=== PATIENT | female | born 1970 | race Caucasian/White ===

== ENCOUNTER 2021-04-30 12:48 | Emergency (ER) | payer MEDICARE, MEDICAID, SELFPAY ==
[2021-04-30 12:49] VITALS: BP 120/84; PULSE 85; RESP 16; TEMP 36.6; O2SAT 96; BMI 32.8
--- NOTE | 2021-04-30 15:09 | EX.ED.DYSGE1 ---
HPI History of Present Illness Chief Complaint: Headache Detail of Chief Complaint: Headache, GI symptoms, urinary symptoms and myalgias Informant: patient Onset/Context/Timing Onset: Yesterday Context: Sudden Onset Timing: Continuous Quality: Myalgias and throbbing headache Location: Generalized and right-sided Current Severity: Mild Maximum Severity: Severe Worsened by: Photophobia and use of extremities Relieved by: Nothing Associated Symptoms Associated Symptoms: Per HPI Narrative Narrative: Patient is a 50-year-old woman with history of depression who presents with unilateral throbbing headache that started yesterday with no visual, ocular or auditory symptoms other than photophobia. She denies fever or chills. She denies neck pain or stiffness. She does complain of throat pain. She points to the larynx region. She does endorse rhinorrhea and congestion. She denies postnasal drainage. She does have mild cough. Cough is nonproductive. She does complain abdominal pain with nausea and vomiting x2 and diarrhea x4. She denies hematemesis, melena medic easier. She is had no ill contacts to her knowledge. She denies rash. She does report myalgias. She denies problems with coordination or balance. She denies problems with speech or swallowing. She denies paresthesia, anesthesia or motor weakness. Prior similar symptoms: No Recent Illness/Hospitalization: No PFSH PFSH Medical History no medical history Allergy/AdvReac Type Severity Reaction Status Date / Time diphenhydramine Allergy Anaphylaxis Verified 04/30/21 12:51 [From Benadryl] tramadol [From Ultram] Allergy Hives Verified 04/30/21 12:51 Social History (Updated 04/30/21 @ 15:[address] Shady Eisenberg MD) household members: significant other Smoking Status: Never smoker substance use type: does not use ROS ROS ED Constitutional Constitutional ED: Reports chills, fever(s) and subjective; Denies sweats or weight loss Eyes Eyes: Reports other Details: Photophobia ; Denies blurry vision, change in vision or diplopia ENT ENT ED: Reports rhinorrhea and sore throat; Denies ear pain Cardiovascular Cardiovascular: Denies chest pain, orthopnea, palpitations, paroxysmal nocturnal dyspnea or racing heartbeat Respiratory/Chest Respiratory/Chest: Reports cough; Denies dyspnea, dyspnea on exertion, orthopnea, paroxysmal nocturnal dyspnea or sputum Gastrointestinal Gastrointestinal: Reports abdominal pain, diarrhea, nausea and vomiting; Denies constipation Genitourinary Genitourinary ED: Reports dysuria, hematuria, urinary frequency and other Details: Patient has noted odor to her urine today. Musculoskeletal Musculoskeletal: Reports myalgias; Denies arthralgias, back pain or neck pain Integumentary Reports rash Neurologic Neurologic: Reports headache(s); Denies paresthesias or weakness Psychiatric Psychiatric: Reports depression; Denies anxiety Endocrine Endocrinology: Reports polydipsia, polyphagia and polyuria EXAM Physical Exam Const Vital Signs: 04/30/21 12:49 Temperature 98 F Temperature Source Temporal Pulse Rate 85 Respiratory Rate 16 Blood Pressure 120/84 H Blood Pressure Mean 96 Pulse Ox 96 Oxygen Delivery Method Room Air Positive well nourished and well developed General Appearance ED: well developed and other Patient has the lights out in the room. She is photophobic. She appears ill but not toxic. ; Negative for cyanotic, diaphoretic, NAD or pallor HEENT Reports TM's clear and dry mucous membranes HEENT Narrative: Ears normal. Nares patent. Posterior pharynx is unremarkable without erythema or exudate. Uvula midline. Trach is midline. There is no inspiratory stridor. There is no palpable cervical lymph nodes. Negative for trauma or tenderness Tympanic Membrane ED: Yes TM's clear Mouth ED: Yes dry mucous membranes Mouth: dry mucous membranes Eyes PERRL and EOMs intact bilaterally Eyes Narrative: There is no APD. There is no papilledema. Normal cup-to-disc ratio. General Eye ED: Negative for pale conjunctiva or scleral icterus Neck no lymphadenopathy, supple and no JVD General: Negative for tenderness Resp normal respiratory effort and clear to auscultation bilaterally Cardio regular rate, regular rhythm, S1 normal heart sound, S2 normal heart sound and no murmurs GI normal to inspection, nondistended, normoactive bowel sounds, non-tender and non-distended Palpation: soft Back/Spine no CVA tenderness Cervical Spine: Negative for cervical spine tenderness Thoracic Spine / Upper Back: Negative for thoracic spinal tenderness Extremity normal to inspection General Extremety ED: Negative for edema or tenderness General Extremity: Negative for edema Neuro oriented x3, CN's II-XII intact bilaterally and no sensory deficits noted Neuro Narrative: Bicep, brachialis, tricep, patella ankle reflex are 2+ and symmetric. There is no clonus or Babinski sign. Sensorium / Orientation: alert Motor Exam: strength 5/5 throughout Psych Psych Narrative: Flat affect Skin no rashes or lesions noted and no wounds General Skin Exam: Negative for jaundice or pallor MDM MDM MDM Narrative Medical decision making narrative: Suspect patient has viral illness. Will obtain UA to rule out urinary tract infection as she has symptoms. Clinically she is dehydrated. 500 cc bolus was given since there is concern possible for Covid. Rapid Covid test was obtained. Since patient has no true photophobia since I was able to do funduscopic exam and has no nuchal rigidity or meningeal findings doubt meningitis. Lab Data Attestation: I reviewed the patient's lab results. Lab results narrative: CBC is remarkable for lymphocytosis consistent with viral infection. Basic metabolic panel is unremarkable. Urine is unremarkable. Patient was reassessed at 1725. Her headache is improved markedly. She was informed of her results. Plan is to discharge to home. Labs: Laboratory Results - last 24 hr 04/30/21 04/30/21 04/30/21 15:20 15:20 15:32 WBC 5.8 RBC 4.00 L Hgb 12.3 Hct 36.4 L MCV 91.0 MCH 30.8 MCHC 33.8 RDW Std Deviation 42.4 RDW Coeff of Roxy 12.9 Plt Count 240 MPV 12.3 H Immature Gran % (Auto) 0.200 Neut % (Auto) 47.1 Lymph % (Auto) 41.5 H [place] % (Auto) 7.3 Eos % (Auto) 3.0 Baso % (Auto) 0.9 Absolute Neuts (auto) 2.7 Absolute Lymphs (auto) 2.39 Nucleated RBC % 0 Sodium 136 Potassium 3.4 L Chloride 102 Carbon Dioxide 27.0 Anion Gap 7 BUN 9 Creatinine 0.76 Estim Creat Clear Calc 72.44 Est GFR (MDRD) Af Amer 102 Est GFR (MDRD) Non-Af 85 BUN/Creatinine Ratio 11.8 Glucose 84 Calcium 9.1 Urine Color Yellow Urine Clarity Clear Urine pH 6.0 Ur Specific [place] 1.005 Urine Protein Negative Urine Glucose (UA) Normal Urine Ketones Negative Urine Occult Blood Negative Urine Nitrite Negative Urine Bilirubin Negative Urine Urobilinogen Normal Ur Leukocyte Esterase Negative Urine RBC 0 SEEN Urine WBC 0 SEEN Ur Squamous Epith Cells 0 SEEN Urine Bacteria 0 SEEN Urine Mucus 0 SEEN Discharge Plan Triage Chief Complaint: Headache ED Provider: Shady Eisenberg Dx/Rx/DC Orders Clinical Impression: Vascular headache, Systemic viral illness, Nausea vomiting and diarrhea, Dehydration, mild Instructions: ED Viral Syndrome (Adult) Primary Care Provider: Meche Wells NP Referrals: Meche Wells NP, [employer] [Primary Care Provider] - 1 Week if not improving Disposition Disposition: Home, Self Care
[2021-04-30] MEDS: Metoclopramide 10 MG/2 ML Vial IV (15:32)
[2021-04-30] MEDS: Ketorolac 15 MG/ML Vial IV (15:32)
[2021-04-30 15:41] LABS: Bacteria 0 SEEN /hpf (None Seen); Mucous, Urine 0 SEEN /hpf (<or=2+); Red Blood Cells-Urine 0 SEEN /hpf (0-5); Squamous Epithelial Cells - UA 0 SEEN /hpf (5-10); White Blood Cells 0 SEEN /hpf (0-5)
[2021-04-30 15:41] LABS: Absolute Lymphocyte Count 2.39 X10^3/uL (0.83-4.51); Absolute Neutrophil Count 2.7 X10^3/uL (2.0-7.7); Basophil# 0.05 X10^3/uL; Basophil% 0.9 % (0-1); Eosinophil# 0.17 X10^3/uL; Hematocrit 36.4 % (37-47); Hemoglobin 12.3 g/dL (12.0-15.0); Lymphocyte # 2.39 X10^3/ul (0.83-4.51); Lymphocyte % 41.5 % (19-41); Mean Corp Hgb Conc 33.8 g/dL (32-36); Mean Corpuscular Hgb 30.8 pg (27.0-32.0); Mean Platelet Vol. 12.3 fl (6.2-12.0); Monocyte# 0.42 X10^3/uL; Monocyte% 7.3 % (0-10); NRBC Flagged by Analyzer 0 % (0-5); Neutrophil # 2.72 X10^3/uL (2.7-7.7); Neutrophil % 47.1 % (47-70); Platelet Count 240 K/mm3 (150-450); RBC Distribution Width CV 12.9 % (11.6-14.6); RBC Distribution Width SD 42.4 fl (35.1-43.9); White Blood Count 5.8 K/mm3 (4.4-11.0)
[2021-04-30 15:54] LABS: Color, Urine Yellow (Yellow); Glucose, Dipstick Normal (Normal); Ketone-Dipstick Negative (Negative); Leukocyte Esterase-Dipstick Negative /ul (Negative); Nitrite-Dipstick Negative (Negative); Occult Blood-Urine Negative /ul (Negative); Protein-Dipstick Negative (Negative); Specific Gravity, Urine 1.005 (1.002-1.030); Urine Bilirubin Dipstick Negative (Negative); Urine Clarity Clear (Clear); Urine Urobilinogen Normal (Normal)
[2021-04-30 16:00] LABS: Anion Gap 7 (5-15); BUN 9 mg/dL (7-18); BUN/Creat Ratio 11.8 RATIO (10-20); Calcium,Total 9.1 mg/dL (8.5-10.1); Chloride 102 mmol/L (98-107); Creatinine, Serum 0.76 mg/dL (0.55-1.02); EST Glomerular Filtration Rate 85 mL/min (>60); Est Glom Filt Rate - Afr Amer 102 mL/min (>60); Estimated Creatinine Clearance 72.44 ml/min; Glucose 84 mg/dL (74-106); Potassium 3.4 mmol/L (3.5-5.1); Sodium Level 136 mmol/L (136-145)
[2021-04-30 18:05] VITALS: BP 127/62; PULSE 64; RESP 15; O2SAT 98
== END 2021-04-30 18:06 | disposition home or self-care (01) ==
PROVIDERS: Emergency Provider Emergency Medicine; PCP Nurse Practitioner Family; Visit Provider Emergency Medicine
DX: G44.1 Vascular headache, not elsewhere classified (principal); B34.9 Viral infection, unspecified; R19.7 Diarrhea, unspecified; Z20.822 Contact with and (suspected) exposure to COVID-19; E86.0 Dehydration
CPT/HCPCS: 80048; 81001; 85025; 87426; 96361; 96374; 96375; 99283; J7040; A4216

== ENCOUNTER 2021-11-26 18:56 | Observation (INO) | payer MEDICARE, MEDICAID, SELFPAY ==
[2021-11-26 18:57] VITALS: BP 113/99; PULSE 81; RESP 16; TEMP 36.6; O2SAT 97; BMI 31.8
--- NOTE | 2021-11-26 21:43 | CT_ITS ---
EXAM: CT ABDOMEN AND PELVIS WITHOUT INTRAVENOUS CONTRAST CLINICAL INDICATION: pain TECHNIQUE: Helically acquired images were obtained of the abdomen and pelvis without intravenous contrast. This CT exam was performed using one or more of the following dose reduction techniques: automated exposure control, adjustment of the mA and/or kV according to patient size, and/or use of iterative reconstruction technique. This report was created using [employer] report generation technology. COMPARISON: None. FINDINGS: LOWER THORAX: Unremarkable. Lung bases are clear. No cardiomegaly. No significant pericardial effusion. ABDOMEN: LIVER: Unremarkable. Homogeneous. GALLBLADDER AND BILE DUCTS: Gallbladder is surgically absent. No intra- or extrahepatic biliary ductal dilation. PANCREAS: Unremarkable. No focal cystic mass. SPLEEN: Unremarkable. Normal size without focal cystic or solid mass. ADRENALS: Unremarkable. No nodules. KIDNEYS AND URETERS: Unremarkable. Normal renal size and position. No hydronephrosis. STOMACH AND BOWEL: Unremarkable. No stomach or bowel distention. No focal inflammatory change. PELVIS: APPENDIX: Normal visualized appendix. BLADDER: Unremarkable. REPRODUCTIVE: Unremarkable as visualized. No mass. ABDOMEN and PELVIS: INTRAPERITONEAL SPACE: Unremarkable. No ascites or other fluid collection. No free air. BONES/JOINTS: Mild lumbar levoscoliosis. No suspicious lytic or blastic abnormality. SOFT TISSUES: Unremarkable. No discrete abdominal or pelvic wall hernia. VASCULATURE: Unremarkable. Abdominal aorta is normal in caliber. LYMPH NODES: Unremarkable. No enlarged lymph nodes. CT/Abdomen/Pelvis without Cont IMPRESSION: No acute findings in the abdomen or pelvis. Electronically Signed: Rafia Santana MD at 22:49 EDT Reading Location ID and State: [id number] / Tel , Service support ,
--- NOTE | 2021-11-26 21:53 | EDS_ITS ---
HPI History of Present Illness Chief Complaint: Back Informant: patient Onset/Context/Timing Onset: Today Context: Gradual Onset Narrative Narrative: Patient presents secondary to low back pain. She states normally she has neck problems but really not issues with her low back. She developed low back pain and actually points to the right flank area. She states it wraps around into the groin line but does not go down her leg. She has no urinary symptoms. No fever or chills. She has been taking Tylenol and ibuprofen. [facility] Medical History (Updated 11/26/21 @ 23:[address] Iram Yates MD) Cholecystectomy planned Allergy/AdvReac Type Severity Reaction Status Date / Time diphenhydramine Allergy Anaphylaxis Verified 11/26/21 18:57 [From Benadryl] tramadol [From Ultram] Allergy Hives Verified 11/26/21 18:57 Social History household members: significant other Smoking Status: Never smoker substance use type: does not use ROS ROS ED Constitutional Constitutional ED: Denies chills or fever(s) Eyes Eyes: Denies change in vision or discharge from eye(s) ENT ENT ED: Denies discharge from eye(s), rhinorrhea or sore throat Cardiovascular Cardiovascular: Denies chest pain or palpitations Respiratory/Chest Respiratory/Chest: Denies cough or dyspnea Gastrointestinal Gastrointestinal: Denies abdominal pain, diarrhea, nausea or vomiting Genitourinary Genitourinary ED: Denies difficulty urinating or dysuria Musculoskeletal Musculoskeletal: Reports back pain; Denies extremity pain Integumentary Denies Abrasions or rash Neurologic Neurologic: Denies headache(s) or weakness Allergic/Immunologic Allergic/Immunologic ED: Denies lip swelling or urticaria EXAM Physical Exam Const Vital Signs: 11/26/21 18:57 Temperature 97.8 F Temperature Source Temporal Pulse Rate 81 Respiratory Rate 16 Blood Pressure 113/99 H Blood Pressure Mean 103 Pulse Ox 97 Oxygen Delivery Method Room Air Positive well nourished and well developed General Appearance ED: well developed HEENT Reports normocephalic and head/scalp atraumatic Eyes PERRL and EOMs intact bilaterally Neck supple Chest Wall inspection of chest normal and palpation of chest normal Resp normal respiratory effort and clear to auscultation bilaterally Cardio regular rate and regular rhythm GI non-tender Auscultation: hypoactive bowel sounds Palpation: soft Back/Spine Back/Spine Narrative: Right lumbar paraspinal tenderness. General Back: CVA tenderness right Extremity normal to inspection Neuro oriented x3 and no sensory deficits noted Sensorium / Orientation: alert Motor Exam: strength 5/5 throughout Psych Mood & Affect: anxious Skin no rashes or lesions noted MDM MDM MDM Narrative Medical decision making narrative: With patient having flank pain, lab work and urinalysis are ordered. CT flank ordered. Patient given morphine, Toradol, Zofran, IV fluids. Lab Data Attestation: I reviewed the patient's lab results. Labs: Laboratory Results - last 24 hr 11/26/21 11/26/21 22:01 22:01 WBC 6.9 RBC 4.11 L Hgb 12.3 Hct 38.0 MCV 92.5 MCH 29.9 MCHC 32.4 RDW Std Deviation 43.7 RDW Coeff of Roxy 13.0 Plt Count 218 MPV 11.8 Immature Gran % (Auto) 0.300 Neut % (Auto) 40.6 L Lymph % (Auto) 48.4 H [place] % (Auto) 7.1 Eos % (Auto) 2.6 Baso % (Auto) 1.0 Absolute Neuts (auto) 2.8 Absolute Lymphs (auto) 3.32 Nucleated RBC % 0 Sodium 134 L Potassium 3.6 Chloride 100 Carbon Dioxide 27.0 Anion Gap 7 BUN 13 Creatinine 1.05 H Estim Creat Clear Calc 51.85 Est GFR (MDRD) Af Amer 71 Est GFR (MDRD) Non-Af 59 L BUN/Creatinine Ratio 12.4 Glucose 90 Calcium 9.1 Total Bilirubin 0.40 Direct Bilirubin 0.12 AST 13 L ALT 19 Alkaline Phosphatase 62 Total Protein 7.2 Albumin 3.9 Globulin 3.3 Radiography Diagnostic Testing: Clinical Impression(s) from Imaging Studies Abdomen/Pelvis CT 11/26/21 21:43 IMPRESSION: No acute findings in the abdomen or pelvis. Electronically Signed: Rafia Santana MD at 22:49 EDT Reading Location ID and State: [id number] / Tel , Service support , Treatment and Re-Evaluation Narrative: CBC and chemistry studies unremarkable. CT flank is normal. On repeat evaluation patient still having significant pain. She is given an additional 0.5 mg of Dilaudid as well as a Lidoderm patch. After another half hour patient still has significant pain and cannot get comfortable. I will give her dose of Flexeril and speak with hospitalist regarding admission for intractable back pain. Discharge Plan Triage Chief Complaint: Back ED Provider: Iram Yates Dx/Rx/DC Orders Clinical Impression: Intractable back pain Primary Care Provider: Meche Wells NP Referrals: Meche Wells NP, [employer] [Primary Care Provider] - Disposition Disposition: Acute Care Hospital [facility]
[2021-11-26] MEDS: Ketorolac 30 MG/ML Syringe IV (21:57)
[2021-11-26] MEDS: Ondansetron 4 MG/2 ML Vial IV (21:57)
[2021-11-26] MEDS: 0.9% Normal Saline 1,000 ML 150 ML IV (21:57)
[2021-11-26] MEDS: Morphine 4 MG/ML Syringe IV (21:57)
[2021-11-26 22:08] LABS: Absolute Lymphocyte Count 3.32 X10^3/uL (0.83-4.51); Absolute Neutrophil Count 2.8 X10^3/uL (2.0-7.7); Basophil# 0.07 X10^3/uL; Eosinophil# 0.18 X10^3/uL; Eosinophils% 2.6 % (0-5); Hemoglobin 12.3 g/dL (12.0-15.0); Lymphocyte # 3.32 X10^3/ul (0.83-4.51); Lymphocyte % 48.4 % (19-41); Mean Corp Hgb Conc 32.4 g/dL (32-36); Mean Corpuscular Hgb 29.9 pg (27.0-32.0); Mean Corpuscular Volume 92.5 fL (81-99); Mean Platelet Vol. 11.8 fl (6.2-12.0); Monocyte# 0.49 X10^3/uL; Monocyte% 7.1 % (0-10); NRBC Flagged by Analyzer 0 % (0-5); Neutrophil # 2.78 X10^3/uL (2.7-7.7); Neutrophil % 40.6 % (47-70); Platelet Count 218 K/mm3 (150-450); RBC Distribution Width SD 43.7 fl (35.1-43.9); Red Blood Count 4.11 M/mm3 (4.2-5.4); White Blood Count 6.9 K/mm3 (4.4-11.0)
[2021-11-26 22:25] LABS: AST(SGOT) 13 U/L (15-37); Alanine Aminotransfer ALT/SGPT 19 U/L (13-56); Albumin, Serum 3.9 g/dL (3.2-5.0); Alkaline Phosphatase 62 U/L (45-117); Anion Gap 7 (5-15); BUN 13 mg/dL (7-18); BUN/Creat Ratio 12.4 RATIO (10-20); Bilirubin, Direct 0.12 mg/dL (0.00-0.30); Calcium,Total 9.1 mg/dL (8.5-10.1); Chloride 100 mmol/L (98-107); Creatinine, Serum 1.05 mg/dL (0.55-1.02); EST Glomerular Filtration Rate 59 mL/min (>60); Est Glom Filt Rate - Afr Amer 71 mL/min (>60); Estimated Creatinine Clearance 51.85 ml/min; Globulin 3.3 g/dL (2.2-4.2); Glucose 90 mg/dL (74-106); Potassium 3.6 mmol/L (3.5-5.1); Protein, Total 7.2 g/dL (6.4-8.2); Sodium Level 134 mmol/L (136-145)
[2021-11-26] MEDS: Lidocaine 5% Patch 1 PATCH TOPICAL (23:06)
[2021-11-26] MEDS: HYDROmorphone 0.5 MG/0.5 ML SYRINGE IV (23:06)
--- NOTE | 2021-11-26 23:50 | HP.PCM_ITS ---
Documented by User: LON Hardin 11/27/21 00:26 HPI - General General Date of Admission: 11/26/21 Date of Service: 11/26/21 Chief Complaint: Intractable back pain HPI Narrative NGUYEN BERGERON, is a 51 F who presents with intractable back pain. Patient denies any injury or trauma to the area. Patient denies any strenuous activities that could have caused pain. Patient states that she has had neck pain in the past for which she has received injections however this has been approximately 3 years since she has had any injections to her neck. Patient reports a history of depression and anxiety, cholecystectomy, multiple episodes of pancreatitis. Patient also reports that she has nonalcoholic fatty liver disease. [facility] Medical History (Updated 11/27/21 @ 00:[address] Ximena Coughlin MD) Anxiety and depression History of biliary stent insertion History of pancreatitis HTN (hypertension) MOCTEZUMA (nonalcoholic steatohepatitis) Home Medications bupropion HCl 300 mg 24 hr tablet, extended release 300 mg PO DAILY 11/27/21 [History Last Taken Unknown] furosemide 20 mg tablet 20 mg PO DAILY 11/27/21 [History Last Taken Unknown] lorazepam 1 mg tablet 1 mg PO TID 11/27/21 [History Last Taken Unknown] montelukast 10 mg tablet 10 mg PO DAILY 11/27/21 [History Last Taken Unknown] potassium chloride 10 mEq tablet,extended release 20 meq PO DAILY 11/27/21 [History Last Taken Unknown] pregabalin 150 mg capsule 150 mg PO TID 11/27/21 [History Last Taken Unknown] spironolactone 100 mg tablet 100 mg PO DAILY 11/27/21 [History Last Taken Unknown] tizanidine 4 mg tablet 4 mg PO PRN PRN Back Pain 11/27/21 [History Last Taken Unknown] Allergy/AdvReac Type Severity Reaction Status Date / Time diphenhydramine Allergy Anaphylaxis Verified 11/26/21 18:57 [From Benadryl] tramadol [From Ultram] Allergy Hives Verified 11/26/21 18:57 Family History (Updated 11/27/21 @ 00:[address] Ximena Coughlin MD) Mother Hypertension Father Hypertension Surgical History (Updated 11/27/21 @ 00:[address] Ximena Coughlin MD) History of bilateral tubal ligation History of surgery on lower extremity S/P biliary surgery S/P cholecystectomy Social History (Updated 11/27/21 @ 00:[address] Ximena Coughlin MD) household members: significant other Smoking Status: Never smoker alcohol intake: never substance use type: does not use ROS Constitutional Constitutional: Denies anorexia, change in weight, chills, fatigue, fever(s) or malaise Cardiovascular Cardiovascular: Denies chest pain, edema, orthopnea or syncope Respiratory/Chest Respiratory/Chest: Denies cough, shortness of breath at rest, shortness of breath with exertion or wheezing Gastrointestinal Gastrointestinal: Denies abdominal pain, constipation, diarrhea, nausea or vomiting Genitourinary Genitourinary: Denies dysuria Musculoskeletal Musculoskeletal: Reports back pain and extremity pain Integumentary Integumentary: Denies dry skin Neurologic Neurologic: Denies abnormal speech, confusion or dizziness Psychiatric Psychiatric: Denies anxiety or depression Endocrine Endocrinology: Denies change in body appearance Hematologic/Lymphatic Hematologic/Lymphatic: Denies anemia Vital Signs Vital Signs Vital Signs: 11/26/21 18:57 Temperature 97.8 F Temperature Source Temporal Pulse Rate 81 Respiratory Rate 16 Blood Pressure 113/99 H Blood Pressure Mean 103 Pulse Ox 97 Oxygen Delivery Method Room Air Weight Weight: 180 lb Body Mass Index (BMI) 31.8 Physical Exam Const alert, oriented x3 and no apparent distress General Appearance: cooperative HEENT normocephalic, head/scalp atraumatic and moist oral mucous membranes Eyes conjunctivae normal and no scleral icterus Neck no lymphadenopathy and supple General: trachea midline Resp normal respiratory effort, normal air movement and clear to auscultation bilaterally Cardio regular rate, regular rhythm, S1 normal heart sound, S2 normal heart sound and peripheral pulses 2+ throughout GI normal to inspection, nondistended, normoactive bowel sounds, soft to palpation and non-tender Extremity normal capillary refill and no clubbing, cyanosis or edema Peripheral Pulses: Yes pulses 2+ throughout Right Lower Extremity: hip joint palpation (Tender) and upper leg Positive for palpation (tender) Skin General Skin Exam: no breakdown Lesions: no lesions Rashes: no rashes Neuro no focal motor deficits and no sensory deficits noted Speech: speech normal Psych thought process normal and cooperative Mood & Affect: anxious Results Lab / Micro Data Result Diagrams: 11/26/21 22:01 11/26/21 22:01 Labs: Laboratory Results - last 24 hr 11/26/21 22:01: WBC 6.9, RBC 4.11 L, Hgb 12.3, Hct 38.0, MCV 92.5, MCH 29.9, MCHC 32.4, RDW Std Deviation 43.7, RDW Coeff of Roxy 13.0, Plt Count 218, MPV 11.8, Immature Gran % (Auto) 0.300, Neut % (Auto) 40.6 L, Lymph % (Auto) 48.4 H, [place] % (Auto) 7.1, Eos % (Auto) 2.6, Baso % (Auto) 1.0, Absolute Neuts (auto) 2.8, Absolute Lymphs (auto) 3.32, Nucleated RBC % 0 11/26/21 22:01: Sodium 134 L, Potassium 3.6, Chloride 100, Carbon Dioxide 27.0, Anion Gap 7, BUN 13, Creatinine 1.05 H, Estim Creat Clear Calc 51.85, Est GFR (MDRD) Af Amer 71, Est GFR (MDRD) Non-Af 59 L, BUN/Creatinine Ratio 12.4, Glucose 90, Calcium 9.1, Total Bilirubin 0.40, Direct Bilirubin 0.12, AST 13 L, ALT 19, Alkaline Phosphatase 62, Total Protein 7.2, Albumin 3.9, Globulin 3.3 Radiology Impression Abdomen/Pelvis CT 11/26/21 21:43 IMPRESSION: No acute findings in the abdomen or pelvis. Electronically Signed: Rafia Santana MD at 22:49 EDT Reading Location ID and State: [id number] / Tel , Service support , Assessment & Plan Assessment/Plan (1) Intractable back pain: PLAN: Plan 1. Intractable Back Pain -Admit to [facility] for observation -Consult case management -Fall precautions -PT and OT to eval and treat -CBC and CMP ordered for a.m. -Every 2 hours repositioning -Pain management regimen ordered including Tylenol, gabapentin, Dilaudid, Toradol, lidocaine patches, oxycodone -As needed Zanaflex ordered -Medrol Dosepak ordered -CT abdomen pelvis negative for acute findings 2. Acute Renal Insufficiency -Creatinine 1.05, was 0.76 on 04/30/2021 -BMP daily -Normal saline 100 mL/h 3. Depression and anxiety -Patient currently takes Lyrica and lorazepam according to [facility] report DVT prophylaxis-subcu Lovenox This patient was seen by KIKO HardinC under the supervision of Dr. Coughlin. 28 minutes spent in clinical coordination of patient's plan of care. Documented by User: Dr. Ximena Coughlin MD 11/27/21 00:53 HPI - General General Date of Admission: 11/27/21 [facility] Medical History (Updated 11/27/21 @ 00:[address] Ximena Coughlin MD) Anxiety and depression History of biliary stent insertion History of pancreatitis HTN (hypertension) MOCTEZUMA (nonalcoholic steatohepatitis) Home Medications bupropion HCl 300 mg 24 hr tablet, extended release 300 mg PO DAILY 11/27/21 [History Last Taken Unknown] furosemide 20 mg tablet 20 mg PO DAILY 11/27/21 [History Last Taken Unknown] lorazepam 1 mg tablet 1 mg PO TID 11/27/21 [History Last Taken Unknown] montelukast 10 mg tablet 10 mg PO DAILY 11/27/21 [History Last Taken Unknown] potassium chloride 10 mEq tablet,extended release 20 meq PO DAILY 11/27/21 [History Last Taken Unknown] pregabalin 150 mg capsule 150 mg PO TID 11/27/21 [History Last Taken Unknown] spironolactone 100 mg tablet 100 mg PO DAILY 11/27/21 [History Last Taken Unknown] tizanidine 4 mg tablet 4 mg PO PRN PRN Back Pain 11/27/21 [History Last Taken Unknown] Allergy/AdvReac Type Severity Reaction Status Date / Time diphenhydramine Allergy Anaphylaxis Verified 11/26/21 18:57 [From Benadryl] tramadol [From Ultram] Allergy Hives Verified 11/26/21 18:57 Family History (Updated 11/27/21 @ 00:[address] Ximena Coughlin MD) Mother Hypertension Father Hypertension Surgical History (Updated 11/27/21 @ 00:[address] Ximena Coughlin MD) History of bilateral tubal ligation History of surgery on lower extremity S/P biliary surgery S/P cholecystectomy Social History (Updated 11/27/21 @ 00:[address] Ximena Coughlin MD) household members: significant other Smoking Status: Never smoker alcohol intake: never substance use type: does not use Results Lab / Micro Data Result Diagrams: 11/26/21 22:01 11/26/21 22:01 Assessment & Plan Assessment/Plan (1) Intractable back pain:
[2021-11-27] VITALS (12 sets, daily range): BP systolic 75–128; BP diastolic 43–87; PULSE 64–86; RESP 14–36; TEMP 35.6–36.5; O2SAT 94–100; BMI 32.5
[2021-11-27] MEDS: cycloBENZAPRine HCl 10 MG Tablet PO (00:15)
[2021-11-27] MEDS: oxyCODONE 5 MG Tablet PO ×3 (01:39→15:41)
[2021-11-27] MEDS: Acetaminophen 325 MG Tablet 650 MG PO (01:39)
[2021-11-27] MEDS: Gabapentin 100 MG Capsule PO ×2 (01:39→08:56)
[2021-11-27] MEDS: 0.9% Normal Saline 1,000 ML 100 ML IV (01:45)
[2021-11-27] MEDS: HYDROmorphone 1 MG/ML Syringe IV ×2 (03:59→11:06)
[2021-11-27 05:20] LABS: Absolute Neutrophil Count 2.5 X10^3/uL (2.0-7.7); Basophil# 0.06 X10^3/uL; Eosinophil# 0.22 X10^3/uL; Eosinophils% 3.5 % (0-5); Hemoglobin 11.8 g/dL (12.0-15.0); Lymphocyte % 49.3 % (19-41); Mean Corp Hgb Conc 32.8 g/dL (32-36); Mean Corpuscular Hgb 30.6 pg (27.0-32.0); Mean Corpuscular Volume 93.3 fL (81-99); Mean Platelet Vol. 12.2 fl (6.2-12.0); Monocyte# 0.45 X10^3/uL; Monocyte% 7.2 % (0-10); NRBC Flagged by Analyzer 0 % (0-5); Neutrophil # 2.45 X10^3/uL (2.7-7.7); Neutrophil % 38.8 % (47-70); Platelet Count 208 K/mm3 (150-450); RBC Distribution Width SD 43.9 fl (35.1-43.9); Red Blood Count 3.86 M/mm3 (4.2-5.4); White Blood Count 6.3 K/mm3 (4.4-11.0)
[2021-11-27 05:47] LABS: ALB/GLOB Ratio 1.1 RATIO (0.9-2.4); AST(SGOT) 13 U/L (15-37); Alanine Aminotransfer ALT/SGPT 18 U/L (13-56); Albumin, Serum 3.4 g/dL (3.2-5.0); Alkaline Phosphatase 58 U/L (45-117); Anion Gap 8 (5-15); BUN 10 mg/dL (7-18); BUN/Creat Ratio 10.4 RATIO (10-20); Chloride 100 mmol/L (98-107); Creatinine, Serum 0.96 mg/dL (0.55-1.02); EST Glomerular Filtration Rate 65 mL/min (>60); Est Glom Filt Rate - Afr Amer 78 mL/min (>60); Estimated Creatinine Clearance 56.71 ml/min; Globulin 3.1 g/dL (2.2-4.2); Glucose 94 mg/dL (74-106); Potassium 3.3 mmol/L (3.5-5.1); Protein, Total 6.5 g/dL (6.4-8.2); Sodium Level 133 mmol/L (136-145)
[2021-11-27] MEDS: tiZANidine HCl 2 MG Tablet PO ×2 (06:21→13:29)
[2021-11-27] MEDS: Ketorolac 15 MG/ML Vial IV ×2 (06:21→13:29)
--- NOTE | 2021-11-27 06:56 | NURSING ---
Patient has been visualized by nurse twice throughout night up to the bathroom without assistance from nursing staff. pt educated to request assistance for safety of patient.
--- NOTE | 2021-11-27 07:18 | PCM.PN.HOSP ---
Subjective Subjective Patient is a 51-year-old lady admitted with intractable back pain with difficulty with ambulation Objective Data Objective Data Vital Signs: Vital Signs Temp Pulse Resp BP Pulse Ox O2 Del Method 97.5 F L 64 14 128/77 H 96 Room Air 11/27/21 03:18 11/27/21 03:18 11/27/21 03:18 11/27/21 03:59 11/27/21 03:18 11/27/21 03:18 Oxygen Delivery Method Room Air Weight: 83.5 kg Body Mass Index (BMI) 32.5 Intake & Output: Intake and Output for Last 24 Hours 11/25/21 11/26/21 11/27/21 23:59 23:59 23:59 Intake Total 627.5 / 627.5 Balance 627.5 / 627.5 Lab / Micro Data Result Diagrams: 11/27/21 04:08 11/27/21 04:08 Labs: Laboratory Results - last 24 hr 11/26/21 22:01: WBC 6.9, RBC 4.11 L, Hgb 12.3, Hct 38.0, MCV 92.5, MCH 29.9, MCHC 32.4, RDW Std Deviation 43.7, RDW Coeff of Roxy 13.0, Plt Count 218, MPV 11.8, Immature Gran % (Auto) 0.300, Neut % (Auto) 40.6 L, Lymph % (Auto) 48.4 H, [place] % (Auto) 7.1, Eos % (Auto) 2.6, Baso % (Auto) 1.0, Absolute Neuts (auto) 2.8, Absolute Lymphs (auto) 3.32, Nucleated RBC % 0 11/26/21 22:01: Sodium 134 L, Potassium 3.6, Chloride 100, Carbon Dioxide 27.0, Anion Gap 7, BUN 13, Creatinine 1.05 H, Estim Creat Clear Calc 51.85, Est GFR (MDRD) Af Amer 71, Est GFR (MDRD) Non-Af 59 L, BUN/Creatinine Ratio 12.4, Glucose 90, Calcium 9.1, Total Bilirubin 0.40, Direct Bilirubin 0.12, AST 13 L, ALT 19, Alkaline Phosphatase 62, Total Protein 7.2, Albumin 3.9, Globulin 3.3 11/27/21 04:08: WBC 6.3, RBC 3.86 L, Hgb 11.8 L, Hct 36.0 L, MCV 93.3, MCH 30.6, MCHC 32.8, RDW Std Deviation 43.9, RDW Coeff of Roxy 13.0, Plt Count 208, MPV 12.2 H, Immature Gran % (Auto) 0.200, Neut % (Auto) 38.8 L, Lymph % (Auto) 49.3 H, [place] % (Auto) 7.2, Eos % (Auto) 3.5, Baso % (Auto) 1.0, Absolute Neuts (auto) 2.5, Absolute Lymphs (auto) 3.10, Nucleated RBC % 0 11/27/21 04:08: Sodium 133 L, Potassium 3.3 L, Chloride 100, Carbon Dioxide 25.0, Anion Gap 8, BUN 10, Creatinine 0.96, Estim Creat Clear Calc 56.71, Est GFR (MDRD) Af Amer 78, Est GFR (MDRD) Non-Af 65, BUN/Creatinine Ratio 10.4, Glucose 94, Calcium 8.0 L, Total Bilirubin 0.30, AST 13 L, ALT 18, Alkaline Phosphatase 58, Total Protein 6.5, Albumin 3.4, Globulin 3.1, Albumin/Globulin Ratio 1.1 Radiography Diagnostic Testing: Radiology Impression Abdomen/Pelvis CT 11/26/21 21:43 IMPRESSION: No acute findings in the abdomen or pelvis. Electronically Signed: Rafia Santana MD at 22:49 EDT Reading Location ID and State: [id number] / Tel , Service support , Physical Exam Narrative GENERAL: cooperative HEENT: Atraumatic; normocephalic EYES; Anicteric, Normal Conjunctiva NECK; supple, normal thyroid, RESPIRATORY: Diminished to auscultation CARDIOVASCULAR: Regular S1 S2, GI: soft, normoactive bowel sounds, : No Renal angle tenderness; EXTREMITIES: No edema, no clubbing, MUSCULOSKELETAL: no muscle wasting NEURO: Awake; no lateralizing signs. SKIN: No Rash PSYCH; Flat affect Assessment & Plan Assessment/Plan (1) Intractable back pain: PLAN: Plan Patient is a 51-year-old lady admitted with intractable back pain with difficulty with ambulation 1. Intractable back pain ? Patient has been admitted to regular nursing floor for symptom management. Currently on narcotics as well as muscle relaxants in addition to steroids. In view of patient difficulty with ambulation MRI of the lumbar spine ordered for subsequent evaluation 2. 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 GERD ? Patient is on PPI 4. Depression with anxiety ? Patient is on Lyrica and lorazepam 5. Mild hyponatremia ? Secondary to patient being on diuretics will monitor 6. Hypokalemia -Corrected per protocol 7. DVT prophylaxis ? SC Lovenox Charges/Coding Visit Charges OBSV E&M: 38204 Subsequent observation care L3
--- NOTE | 2021-11-27 08:02 | MRI_ITS ---
HISTORY: intractable back pain TECHNIQUE: Multiplanar and multisequence MR images of the lumbar spine were obtained without intravenous contrast. 131 images. COMPARISON: CT prior day. FINDINGS: Motion artifact lowers the sensitivity of examination. VERTEBRAE: Vertebral body heights maintained. Mild degenerative bony endplate changes at L2-3. ALIGNMENT: 3 mm retrolisthesis of L2-3. CONUS: Normal morphology and position of the conus medullaris at L1. INTERVERTEBRAL DISCS: Posterior disc bulge osteophyte complexes with facet arthropathy at multiple levels. T12-L1, L1-2, L2-3: No significant central canal stenosis or foraminal narrowing. L3-4, L4-5, L5-S1: No significant central canal stenosis. Very mild bilateral foraminal narrowing. SOFT TISSUES: No paraspinal fluid collections. MRI/Spine Lumbar (Routine) IMPRESSION: Limited examination due to motion artifact. Multilevel degenerative disc disease without evidence for critical stenosis in the lumbar spine. Electronically Signed: Elizabeth Fuller MD at 13:16 EDT ,
[2021-11-27] MEDS: MethylPREDNISolone DosePak 4 MG BOX PO ×2 (08:56→11:54)
[2021-11-27] MEDS: Potassium Chloride Oral Tablet 20 MEQ 40 MEQ PO (08:56)
[2021-11-27] MEDS: LORazepam 2 MG/ML Syringe 1 MG IV (09:45)
[2021-11-27] MEDS: 0.9% Saline Lock 10 ML Syringe IV ×2 (09:50→13:30)
[2021-11-27] MEDS: Lidocaine 5% Patch 2 PATCH TOPICAL (11:07)
[2021-11-27] MEDS: Enoxaparin 40 MG/0.4 ML Syringe SC (11:07)
[2021-11-27] MEDS: buPROPion (XL) 300 MG TABLET.XL PO (11:08)
[2021-11-27] MEDS: Potassium Chloride Oral Tablet 20 MEQ PO (11:08)
[2021-11-27] MEDS: Furosemide 20 MG Tablet PO (11:08)
[2021-11-27] MEDS: Spironolactone 50 MG Tablet 100 MG PO (11:08)
[2021-11-27] MEDS: Montelukast 10 MG Tablet PO (11:08)
[2021-11-27] MEDS: Pantoprazole Sodium 20 MG Tablet PO (11:08)
[2021-11-27] MEDS: Pregabalin 75 MG Capsule 150 MG PO (13:29)
--- NOTE | 2021-11-27 14:42 | DS.PCM_ITS ---
Providers Date of Admission: 11/26/21 Date of Discharge: 11/27/21 Primary Care Physician: LON Atkins Reason For Visit: INTRACTABLE BACK PAIN Diagnosis Discharge Diagnosis (1) Intractable back pain: Status: Acute Code(s): M54.9 - Dorsalgia, unspecified Plan Patient is a 51-year-old lady admitted with intractable back pain with difficulty with ambulation 1. Intractable back pain ? Patient has been admitted to regular nursing floor for symptom management. Currently on narcotics as well as muscle relaxants in addition to steroids. In view of patient difficulty with ambulation MRI of the lumbar spine ordered for subsequent evaluation -MRI of the lumbar spine obtained did show Multilevel degenerative disc disease without evidence for critical stenosis in the lumbar spine patient was subs equently discharged to instructed to follow-up with primary care physician to be referred to pain management 2. 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 GERD ? Patient is on PPI 4. Depression with anxiety ? Patient is on Lyrica and lorazepam 5. Mild hyponatremia ? Secondary to patient being on diuretics will monitor 6. Hypokalemia -Corrected per protocol 7. DVT prophylaxis ? SC Lovenox Medications at Discharge Home Medications bupropion HCl 300 mg 24 hr tablet, extended release 300 mg PO DAILY 11/27/21 furosemide 20 mg tablet 20 mg PO DAILY 11/27/21 lidocaine 5 % topical patch 2 patch topical DAILY #30 ea 11/27/21 lorazepam 1 mg tablet 1 mg PO TID 11/27/21 melatonin 10 mg tablet 10 mg PO QHS PRN Insomnia 11/27/21 montelukast 10 mg tablet 10 mg PO DAILY 11/27/21 omeprazole 20 mg capsule,delayed release 20 mg PO DAILY indigestion 11/27/21 oxycodone 5 mg tablet 5 mg PO Q4H PRN PRN Pain Score 4-5 3 days #12 tabs 11/27/21 potassium chloride 10 mEq tablet,extended release 20 meq PO DAILY 11/27/21 prednisone 20 mg tablet 40 mg PO DAILY #10 tabs 11/27/21 pregabalin 150 mg capsule 150 mg PO TID 11/27/21 spironolactone 100 mg tablet 100 mg PO DAILY 11/27/21 tizanidine 4 mg tablet 4 mg PO PRN PRN Back Pain 11/27/21 Physical Exam Narrative GENERAL: cooperative HEENT: Atraumatic; normocephalic EYES; Anicteric, Normal Conjunctiva NECK; supple, normal thyroid, RESPIRATORY: Diminished to auscultation CARDIOVASCULAR: Regular S1 S2, GI: soft, normoactive bowel sounds, : No Renal angle tenderness; EXTREMITIES: No edema, no clubbing, MUSCULOSKELETAL: no muscle wasting NEURO: Awake; no lateralizing signs. SKIN: No Rash PSYCH; Flat affect Weight / BMI Weight Weight: 83.5 kg Body Mass Index (BMI) 32.5 ABG / Lab / Microbiology Data Result Diagrams: 11/27/21 04:08 11/27/21 04:08 Laboratory: Laboratory Results - last 24 hr 11/26/21 22:01: WBC 6.9, RBC 4.11 L, Hgb 12.3, Hct 38.0, MCV 92.5, MCH 29.9, MCHC 32.4, RDW Std Deviation 43.7, RDW Coeff of Roxy 13.0, Plt Count 218, MPV 11.8, Immature Gran % (Auto) 0.300, Neut % (Auto) 40.6 L, Lymph % (Auto) 48.4 H, [place] % (Auto) 7.1, Eos % (Auto) 2.6, Baso % (Auto) 1.0, Absolute Neuts (auto) 2.8, Absolute Lymphs (auto) 3.32, Nucleated RBC % 0 11/26/21 22:01: Sodium 134 L, Potassium 3.6, Chloride 100, Carbon Dioxide 27.0, Anion Gap 7, BUN 13, Creatinine 1.05 H, Estim Creat Clear Calc 51.85, Est GFR (MDRD) Af Amer 71, Est GFR (MDRD) Non-Af 59 L, BUN/Creatinine Ratio 12.4, Glucose 90, Calcium 9.1, Total Bilirubin 0.40, Direct Bilirubin 0.12, AST 13 L, ALT 19, Alkaline Phosphatase 62, Total Protein 7.2, Albumin 3.9, Globulin 3.3 11/27/21 04:08: WBC 6.3, RBC 3.86 L, Hgb 11.8 L, Hct 36.0 L, MCV 93.3, MCH 30.6, MCHC 32.8, RDW Std Deviation 43.9, RDW Coeff of Roxy 13.0, Plt Count 208, MPV 12.2 H, Immature Gran % (Auto) 0.200, Neut % (Auto) 38.8 L, Lymph % (Auto) 49.3 H, [place] % (Auto) 7.2, Eos % (Auto) 3.5, Baso % (Auto) 1.0, Absolute Neuts (auto) 2.5, Absolute Lymphs (auto) 3.10, Nucleated RBC % 0 11/27/21 04:08: Sodium 133 L, Potassium 3.3 L, Chloride 100, Carbon Dioxide 25.0 , Anion Gap 8, BUN 10, Creatinine 0.96, Estim Creat Clear Calc 56.71, Est GFR (MDRD) Af Amer 78, Est GFR (MDRD) Non-Af 65, BUN/Creatinine Ratio 10.4, Glucose 94, Calcium 8.0 L, Total Bilirubin 0.30, AST 13 L, ALT 18, Alkaline Phosphatase 58, Total Protein 6.5, Albumin 3.4, Globulin 3.1, Albumin/Globulin Ratio 1.1 Radiography Diagnostic Testing: Radiology Impression Abdomen/Pelvis CT 11/26/21 21:43 IMPRESSION: No acute findings in the abdomen or pelvis. Electronically Signed: Rafia Santana MD at 22:49 EDT , Lumbar Spine MRI 11/27/21 08:02 IMPRESSION: Limited examination due to motion artifact. Multilevel degenerative disc disease without evidence for critical stenosis in the lumbar spine. Electronically Signed: Elizabeth Fuller MD at 13:16 EDT , D/C Instructions Discharge Diet: No restrictions Additional Activity Instructions: Do not drive while taking narcotics Call your doctor if you observe: Fever of 101 or Higher, Shortness of breath, Fainting spells and Chest pain Meaningful Use Info Meaningful Use Diagnoses (Choose all that apply): None applicable Discharge Plan Admission Admit Date/Time: 11/26/21 23:50 Attending Provider: Almas Bone Primary Care Provider: Meche Wells NP Consulting Providers: Ximena Coughlin Discharge Orders/Prescriptions Prescriptions: New lidocaine 5 % Adhesive Patch,Medicated 2 patch topical DAILY Qty: 30 0RF Protocol: *Topical Application Instructions APPLICATION INSTRUCTIONS: to affected back area oxycodone 5 mg Tablet 5 mg PO Q4H PRN PRN (Reason: Pain Score 4-5) 3 Days Qty: 12 0RF prednisone 20 mg tablet 40 mg PO DAILY Qty: 10 0RF Continued tizanidine 4 mg tablet 4 mg PO PRN PRN (Reason: Back Pain) Label Comments: TAKE 1 TABLET BY MOUTH THREE TIMES DAILY spironolactone 100 mg tablet 100 mg PO DAILY Label Comments: TAKE 2 TABLETS BY MOUTH DAILY potassium chloride 10 mEq tablet extended release 20 meq PO DAILY Label Comments: 1 tablet by mouth twice a day montelukast 10 mg tablet 10 mg PO DAILY Label Comments: Take 1 tablet by mouth daily furosemide 20 mg tablet 20 mg PO DAILY Label Comments: TAKE 1 TABLET BY MOUTH TWICE DAILY lorazepam 1 mg tablet 1 mg PO TID Label Comments: TAKE 1 TABLET BY MOUTH THREE TIMES DAILY bupropion HCl 300 mg tablet extended release 24 hr 300 mg PO DAILY Label Comments: by mouth once a day as directed pregabalin 150 mg capsule 150 mg PO TID Label Comments: TAKE 1 CAPSULE BY MOUTH THREE TIMES DAILY omeprazole 20 mg Capsule,Delayed Release(Dr/Ec) 20 mg PO DAILY melatonin 10 mg Tablet 10 mg PO QHS PRN (Reason: Insomnia) Referrals / Follow Up: Meche Wells NP, [employer] [Primary Care Provider] - Within 1 Week (to be referred to pain management) Disposition Disposition (needs filled in before D/C Order can be placed): Home, Self Care Charges/Coding Visit Charges OBSV E&M: 04620 Observation care discharge
== END 2021-11-27 16:15 | disposition home or self-care (01) ==
LOC: ED 23:53 → MS3 11-27 00:58
PROVIDERS: Admitting Provider Family Medicine; Emergency Provider Emergency Medicine; PCP Nurse Practitioner Family; Visit Provider Internal Medicine
DX: M54.50 Low back pain, unspecified (principal); K74.60 Unspecified cirrhosis of liver; E87.1 Hypo-osmolality and hyponatremia; K75.81 Nonalcoholic steatohepatitis (NASH); F32.A Depression, unspecified; E66.9 Obesity, unspecified; E87.6 Hypokalemia; F41.9 Anxiety disorder, unspecified; G89.29 Other chronic pain; I10 Essential (primary) hypertension; Z68.32 Body mass index [BMI] 32.0-32.9, adult; Z79.899 Other long term (current) drug therapy; N28.9 Disorder of kidney and ureter, unspecified
CPT/HCPCS: 36415; 72148; 74176; 80048; 80053; 80076; 85025; 96361; 96372; 96374; 96375; 96376; 97162; 97166; 99218; 99284; J7030; A4216; G0378; J2405

== ENCOUNTER 2022-01-01 10:23 | Emergency (ER) | payer MEDICARE, MEDICAID, SELFPAY ==
[2022-01-01 10:24] VITALS: BP 124/91; PULSE 101; RESP 16; TEMP 36.7; O2SAT 96; BMI 31.2
--- NOTE | 2022-01-01 11:38 | CT_ITS ---
STUDY: CT FACIAL BONES WITHOUT CONTRAST REASON FOR EXAM: Female, 51 years old. Right jaw pain. Locked jaw. RADIATION DOSAGE (If Supplied By Facility): CTDIvol = ( 29.38 ) mGy, DLP = ( 540.11 ) mGycm TECHNIQUE: The patient was scanned in a multi detector CT scanner. Sagittal and coronal images were reconstructed. Individualized dose optimization techniques were used for this CT. COMPARISON: None. FINDINGS: There is a 1.4 cm polyp or retention cyst at the base of the right maxillary sinus. There is a mild degree of anterior subluxation of the right mandibular condyle as compared to the left side. Normal orbital sotelo and orbital contents. Normal nasal bones and anterior nasal spine. Normal facial bones. There is no demonstrated fracture. Normal visualized paranasal sinuses. CT/Sinus/Facial Bone IMPRESSION: Mild degree of anterior subluxation of the right mandibular condyle with respect to the left side. Electronically Signed: Bronson Bella MD at 12:06 EDT ,
--- NOTE | 2022-01-01 11:41 | EDS_ITS ---
HPI History of Present Illness Chief Complaint: Other, Pain/Inj Detail of Chief Complaint: Right jaw pain that started several weeks ago Informant: patient Narrative Narrative: Patient presents the emergency department with right jaw pain that she has had for several weeks. Patient initially started with some discomfort to the right ear and was treated with prednisone and eardrops. Patient states that she subsequently then couple weeks ago had her dog run into her jaw while she had her mouth open and injured her jaw. Since that time she is having hard time opening closing her mouth and chewing and eating. Patient finally comes in for evaluation. [facility] Medical History (Updated 01/01/22 @ 13:[address] Kameron Banks, DO) Anxiety and depression GERD (gastroesophageal reflux disease) History of biliary stent insertion History of pancreatitis HTN (hypertension) Migraines MOCTEZUMA (nonalcoholic steatohepatitis) Osteoporosis Pancreatitis Home Medications bupropion HCl 300 mg 24 hr tablet, extended release 300 mg PO DAILY 11/27/21 [History Last Taken Unknown] furosemide 20 mg tablet 20 mg PO DAILY 11/27/21 [History Last Taken Unknown] lidocaine 5 % topical patch 2 patch topical DAILY #30 ea 11/27/21 [Rx Last Taken Unknown] lorazepam 1 mg tablet 1 mg PO TID 11/27/21 [History Last Taken Unknown] melatonin 10 mg tablet 10 mg PO QHS PRN Insomnia 11/27/21 [History Last Taken Unknown] montelukast 10 mg tablet 10 mg PO DAILY 11/27/21 [History Last Taken Unknown] omeprazole 20 mg capsule,delayed release 20 mg PO DAILY indigestion 11/27/21 [History Last Taken Unknown] oxycodone 5 mg tablet 5 mg PO Q4H PRN PRN Pain Score 4-5 3 days #12 tabs 11/27/21 [Rx Last Taken Unknown] potassium chloride 10 mEq tablet,extended release 20 meq PO DAILY 11/27/21 [History Last Taken Unknown] prednisone 20 mg tablet 40 mg PO DAILY #10 tabs 11/27/21 [Rx Last Taken Unknown] pregabalin 150 mg capsule 150 mg PO TID 11/27/21 [History Last Taken Unknown] spironolactone 100 mg tablet 100 mg PO DAILY 11/27/21 [History Last Taken Unknown] tizanidine 4 mg tablet 4 mg PO PRN PRN Back Pain 11/27/21 [History Last Taken Unknown] hydrocodone-acetaminophen 5-325mg 5mg-325mg 1 tab PO Q4H PRN PRN Pain 2 days #15 TABLETS 01/01/22 [Rx Last Taken Unknown] Allergy/AdvReac Type Severity Reaction Status Date / Time diphenhydramine Allergy Anaphylaxis Verified 01/01/22 10:24 [From Benadryl] tramadol [From Ultram] Allergy Hives Verified 01/01/22 10:24 turkey Allergy Food Verified 01/01/22 10:24 Allergy Family History (Updated 11/27/21 @ 00:[address] Ximena Coughlin MD) Mother Hypertension Father Hypertension Surgical History History of bilateral tubal ligation History of surgery on lower extremity S/P biliary surgery S/P cholecystectomy Social History (Updated 11/27/21 @ 00:[address] Ximena Coughlin MD) household members: significant other Smoking Status: Never smoker alcohol intake: never substance use type: does not use ROS ROS ED Review of Systems ROS Unobtainable: other Constitutional Constitutional ED: Reports lethargy; Denies chills, fever(s), sweats or weight loss Eyes Eyes: Denies blurry vision, change in vision or diplopia ENT ENT ED: Reports other Details: Right jaw pain ; Denies rhinorrhea or sore throat Cardiovascular Cardiovascular: Denies chest pain, orthopnea or racing heartbeat Respiratory/Chest Respiratory/Chest: Denies cough, dyspnea, dyspnea on exertion, orthopnea or sputum Gastrointestinal Gastrointestinal: Denies abdominal pain, diarrhea, nausea or vomiting Genitourinary Genitourinary ED: Denies dysuria, hematuria or urinary frequency Musculoskeletal Musculoskeletal: Denies arthralgias, back pain, myalgias or neck pain Integumentary Denies abscess, Abrasions or rash Neurologic Neurologic: Denies headache(s) or weakness Psychiatric Psychiatric: Denies anxiety, depression or suicidal thoughts Endocrine Endocrinology: Denies polydipsia, polyphagia or polyuria Hematologic/Lymphatic Hematologic/Lymphatic: Denies easy bleeding, easy bruising or lymphadenopathy Allergic/Immunologic Allergic/Immunologic ED: Denies mouth swelling, tongue swelling or urticaria EXAM Physical Exam Const Vital Signs: 01/01/22 10:24 01/01/22 11:09 Temperature 98.1 F Temperature Source Temporal Pulse Rate 101 H Respiratory Rate 16 Respiratory Effort Normal Non-Labored Respiratory Pattern Normal Blood Pressure 124/91 H Blood Pressure Mean 102 Pulse Ox 96 Oxygen Delivery Method Room Air Positive well nourished and well developed General Appearance ED: well developed and NAD HEENT Reports TM's clear and moist mucous membranes HEENT Narrative: Patient with tenderness palpation over right mandible and right TMJ. There is popping and clicking with attempted opening of the mouth which she can only partially open. I do not appreciate an obvious dislocation of the mandible. No dental pain or dental abscess noted. normocephalic and atraumatic; Negative for trauma or tenderness Tympanic Membrane ED: Yes TM's clear Eyes PERRL and EOMs intact bilaterally General Eye ED: Negative for pale conjunctiva or scleral icterus Neck no lymphadenopathy, supple and no JVD General: Negative for tenderness Chest Wall inspection of chest normal and palpation of chest normal Chest: Negative for tenderness Resp normal respiratory effort and clear to auscultation bilaterally Effort and Inspection: Negative for respiratory distress or pain with movement Auscultation: Negative for rhonchi, wheezes or diminished lung sounds Cardio regular rate, regular rhythm, S1 normal heart sound, S2 normal heart sound and no murmurs Peripheral Pulses: pulses 2+ throughout GI normal to inspection, nondistended, normoactive bowel sounds, soft to palpation, non-tender, non-distended and no masses Back/Spine no CVA tenderness and no thoracic nor lumbar tenderness Extremity normal to inspection General Extremety ED: Negative for edema General Extremity: Negative for edema Neuro oriented x3, CN's II-XII intact bilaterally, no sensory deficits noted and gait normal Sensorium / Orientation: awake, alert, oriented to person, oriented to place and oriented to time Motor Exam: strength 5/5 throughout and strength abnormal Psych mental status grossly normal Skin no rashes or lesions noted and no wounds MDM MDM MDM Narrative Medical decision making narrative: Patient had a CT scan of the facial bones that showed a mild anterior subluxation of the right mandibular condyle compared to the left side. Clinically patient not presenting as a dislocation of the mandible. I did discuss case with Dr. Persaud/oral maxillofacial surgeon who recommended muscle relaxer and pain medicine and follow-up with his office. Dr. Persaud believes there may be an anterior disc subluxation in the joint which will take significant amount of time to resolve. Patient comfortable with plan. She is advised on a soft diet. Radiography Diagnostic Testing: Clinical Impression(s) from Imaging Studies Facial/Sinus 01/01/22 11:38 IMPRESSION: Mild degree of anterior subluxation of the right mandibular condyle with respect to the left side. Electronically Signed: Bronson Bella MD at 12:06 EDT Reading Location ID and State: [facility] / MD , Service support , Discharge Plan Triage Chief Complaint: Other, Pain/Inj ED Provider: Kameron Banks Dx/Rx/DC Orders Clinical Impression: Jaw pain Instructions: ED Pain, Acute, Uncertain Cause Prescriptions: New hydrocodone-acetaminophen [hydrocodone-acetaminophen] 5-325 mg tablet 1 tab PO Q4H PRN PRN (Reason: Pain) 2 Days Qty: 15 0RF No Action tizanidine 4 mg tablet 4 mg PO PRN PRN (Reason: Back Pain) Label Comments: TAKE 1 TABLET BY MOUTH THREE TIMES DAILY spironolactone 100 mg tablet 100 mg PO DAILY Label Comments: TAKE 2 TABLETS BY MOUTH DAILY potassium chloride 10 mEq tablet extended release 20 meq PO DAILY Label Comments: 1 tablet by mouth twice a day montelukast 10 mg tablet 10 mg PO DAILY Label Comments: Take 1 tablet by mouth daily furosemide 20 mg tablet 20 mg PO DAILY Label Comments: TAKE 1 TABLET BY MOUTH TWICE DAILY lorazepam 1 mg tablet 1 mg PO TID Label Comments: TAKE 1 TABLET BY MOUTH THREE TIMES DAILY bupropion HCl 300 mg tablet extended release 24 hr 300 mg PO DAILY Label Comments: by mouth once a day as directed pregabalin 150 mg capsule 150 mg PO TID Label Comments: TAKE 1 CAPSULE BY MOUTH THREE TIMES DAILY omeprazole 20 mg Capsule,Delayed Release(Dr/Ec) 20 mg PO DAILY melatonin 10 mg Tablet 10 mg PO QHS PRN (Reason: Insomnia) lidocaine 5 % Adhesive Patch,Medicated 2 patch topical DAILY Qty: 30 0RF Protocol: *Topical Application Instructions APPLICATION INSTRUCTIONS: to affected back area oxycodone 5 mg Tablet 5 mg PO Q4H PRN PRN (Reason: Pain Score 4-5) 3 Days Qty: 12 0RF prednisone 20 mg tablet 40 mg PO DAILY Qty: 10 0RF Primary Care Provider: Meche Wells NP Referrals: Anoop Persaud DDS [Med Staff - Active Staff] - 3-5 Days Meche Wells [employer]DER[employer] MACHINE [employer]ED[employer], [employer]ACHINE [employer]ED[employer] [Primary Care Provider] - Disposition Disposition: Home, Self Care
== END 2022-01-01 13:22 | disposition home or self-care (01) ==
PROVIDERS: Emergency Provider Emergency Medicine; PCP Nurse Practitioner Family; Visit Provider Emergency Medicine
DX: R68.84 Jaw pain (principal); I10 Essential (primary) hypertension
CPT/HCPCS: 70486; 99282

== ENCOUNTER 2022-07-15 15:29 | Emergency (ER) | payer MEDICARE, MEDICAID, SELFPAY ==
[2022-07-15 15:30] VITALS: BP 123/79; PULSE 82; RESP 18; TEMP 35.5; O2SAT 96; BMI 33.1
--- NOTE | 2022-07-15 16:26 | CM.ED ---
Social Work SW spoke with patient regarding Advanced Directives. Pt reports she has them at home in a safe. SW requested they bring them to the hospital when able to be scanned into medical record. Ani Syed JOURNALIST, PUBLICATION EDITOR
--- NOTE | 2022-07-15 16:27 | ED.VIS.GI ---
HPI HPI - GI History of Present Illness Chief Complaint: Abd Pain Narrative Narrative: 51-year-old female presenting with periumbilical and right lower quadrant abdominal pain. She states it started last night. She rates it 8 of 10 pain currently. She states it kind of radiates around her right flank. She denies diarrhea, constipation, nausea, vomiting, fever, chills. She has no vaginal complaints. She states she takes Belbuca from her chronic pain specialist and states this is taking the edge off of it. Previous history of cholecystectomy and tubal ligation. [facility] Medical History Anxiety and depression DDD (degenerative disc disease) GERD (gastroesophageal reflux disease) History of biliary stent insertion History of pancreatitis HTN (hypertension) Hypothyroidism Migraines MOCTEZUMA (nonalcoholic steatohepatitis) Osteoporosis Pancreatitis Home Medications bupropion HCl 300 mg 24 hr tablet, extended release 300 mg PO DAILY 11/27/21 [History Last Taken Unknown] furosemide 20 mg tablet 20 mg PO DAILY 11/27/21 [History Last Taken Unknown] lidocaine 5 % topical patch 2 patch topical DAILY #30 ea 11/27/21 [Rx Last Taken Unknown] lorazepam 1 mg tablet 1 mg PO TID 11/27/21 [History Last Taken Unknown] melatonin 10 mg tablet 10 mg PO QHS PRN Insomnia 11/27/21 [History Last Taken Unknown] montelukast 10 mg tablet 10 mg PO DAILY 11/27/21 [History Last Taken Unknown] omeprazole 20 mg capsule,delayed release 20 mg PO DAILY indigestion 11/27/21 [History Last Taken Unknown] oxycodone 5 mg tablet 5 mg PO Q4H PRN PRN Pain Score 4-5 3 days #12 tabs 11/27/21 [Rx Last Taken Unknown] potassium chloride 10 mEq tablet,extended release 20 meq PO DAILY 11/27/21 [History Last Taken Unknown] prednisone 20 mg tablet 40 mg PO DAILY #10 tabs 11/27/21 [Rx Last Taken Unknown] pregabalin 150 mg capsule 150 mg PO TID 11/27/21 [History Last Taken Unknown] spironolactone 100 mg tablet 100 mg PO DAILY 11/27/21 [History Last Taken Unknown] tizanidine 4 mg tablet 4 mg PO PRN PRN Back Pain 11/27/21 [History Last Taken Unknown] hydrocodone-acetaminophen 5-325mg 5mg-325mg 1 tab PO Q4H PRN PRN Pain 2 days #15 TABLETS 01/01/22 [Rx Last Taken Unknown] Allergy/AdvReac Type Severity Reaction Status Date / Time diphenhydramine Allergy Anaphylaxis Verified 07/15/22 15:31 [From Benadryl] tramadol [From Ultram] Allergy Hives Verified 07/15/22 15:31 turkey Allergy Food Verified 07/15/22 15:31 Allergy Family History Mother Hypertension Father Hypertension Surgical History History of bilateral tubal ligation History of surgery on lower extremity S/P biliary surgery S/P cholecystectomy Social History household members: significant other Smoking Status: Former smoker alcohol intake: never substance use type: does not use ROS ROS ED Constitutional Constitutional ED: Denies chills or fever(s) ENT ENT ED: Denies rhinorrhea or sore throat Cardiovascular Cardiovascular: Denies chest pain or palpitations Respiratory/Chest Respiratory/Chest: Denies cough or dyspnea Gastrointestinal Gastrointestinal: Reports abdominal pain; Denies constipation, diarrhea, melena, nausea or vomiting Genitourinary Genitourinary ED: Denies dysuria or hematuria Musculoskeletal Musculoskeletal: Denies arthralgias or back pain Integumentary Denies abscess or Abrasions Neurologic Neurologic: Denies headache(s) or paresthesias Psychiatric Psychiatric: Denies anxiety or depression Endocrine Endocrinology: Denies polydipsia or polyphagia EXAM Physical Exam Const Vital Signs: 07/15/22 15:30 07/15/22 17:58 Temperature 96 F L Temperature Source Temporal Pulse Rate 82 71 Respiratory Rate 18 16 Blood Pressure 123/79 H 111/78 Blood Pressure Mean 93 89 Pulse Ox 96 98 Oxygen Delivery Method Room Air Room Air Positive well nourished General Appearance ED: NAD; Negative for pallor HEENT Reports TM's clear and moist mucous membranes normocephalic and atraumatic Tympanic Membrane ED: Yes TM's clear Eyes PERRL Neck no lymphadenopathy Resp normal respiratory effort and clear to auscultation bilaterally Cardio regular rate GI Palpation: tender RLQ and periumbilical Back/Spine no CVA tenderness Neuro CN's II-XII intact bilaterally Sensorium / Orientation: alert Motor Exam: strength 5/5 throughout Psych mental status grossly normal and thought process normal Skin General Skin Exam: Negative for jaundice or pallor MDM MDM MDM Narrative Medical decision making narrative: Presented with right lower abdominal pain. Patient has no history of kidney stones. Differential does include kidney stone, ureteral stone, pyelonephritis, colitis, appendicitis. Patient medicated with Toradol. CBC was obtained and shows no leukocytosis with a white blood count 5.8. Hemoglobin stable. Platelets normal. Liver function, renal function within normal limits. Electrolytes are within normal limits. Urinalysis negative for infection or occult blood. Have low suspicion for kidney stone or pyelonephritis. On reevaluation patient still having a little bit of pain. I did offer a CT of the abdomen pelvis but the patient declines. This point give return precautions. Impression: 1. Abdominal pain Lab Data Labs: Laboratory Results - last 24 hr 07/15/22 07/15/22 07/15/22 16:35 16:35 16:44 WBC 5.8 RBC 3.77 L Hgb 12.8 Hct 39.1 MCV 103.7 H MCH 34.0 H MCHC 32.7 RDW Std Deviation 51.3 H RDW Coeff of Roxy 13.2 Plt Count 243 MPV 11.9 Immature Gran % (Auto) 0.500 Neut % (Auto) 49.8 Lymph % (Auto) 36.8 Henry % (Auto) 8.8 Eos % (Auto) 2.7 Baso % (Auto) 1.4 H Absolute Neuts (auto) 2.9 Absolute Lymphs (auto) 2.14 Nucleated RBC % 0 Sodium 140 Potassium 3.8 Chloride 109 H Carbon Dioxide 25.0 Anion Gap 6 BUN 14 Creatinine 0.99 Estim Creat Clear Calc 57.40 Est GFR (MDRD) Af Amer 75 Est GFR (MDRD) Non-Af 62 BUN/Creatinine Ratio 14.1 Glucose 103 Calcium 9.1 Total Bilirubin 0.20 AST 37 ALT 54 Alkaline Phosphatase 48 Total Protein 6.6 Albumin 3.3 Globulin 3.3 Albumin/Globulin Ratio 1.0 Urine Color Yellow Urine Clarity Clear Urine pH 6.0 Ur Specific [place] 1.015 Urine Protein 15 H Urine Glucose (UA) Normal Urine Ketones 5 H Urine Occult Blood Negative Urine Nitrite Negative Urine Bilirubin Negative Urine Urobilinogen Normal Ur Leukocyte Esterase Negative Urine RBC 0 SEEN Urine WBC 0 SEEN Ur Squamous Epith Cells 0 SEEN Urine Bacteria 0 SEEN Urine Mucus 0 SEEN Discharge Plan Triage Chief Complaint: Abd Pain ED Provider: Boaz Ramos Dx/Rx/DC Orders Instructions: ED Abdominal Pain Unkn Cause Male... Prescriptions: No Action tizanidine 4 mg tablet 4 mg PO PRN PRN (Reason: Back Pain) Label Comments: TAKE 1 TABLET BY MOUTH THREE TIMES DAILY spironolactone 100 mg tablet 100 mg PO DAILY Label Comments: TAKE 2 TABLETS BY MOUTH DAILY potassium chloride 10 mEq tablet extended release 20 meq PO DAILY Label Comments: 1 tablet by mouth twice a day montelukast 10 mg tablet 10 mg PO DAILY Label Comments: Take 1 tablet by mouth daily furosemide 20 mg tablet 20 mg PO DAILY Label Comments: TAKE 1 TABLET BY MOUTH TWICE DAILY lorazepam 1 mg tablet 1 mg PO TID Label Comments: TAKE 1 TABLET BY MOUTH THREE TIMES DAILY bupropion HCl 300 mg tablet extended release 24 hr 300 mg PO DAILY Label Comments: by mouth once a day as directed pregabalin 150 mg capsule 150 mg PO TID Label Comments: TAKE 1 CAPSULE BY MOUTH THREE TIMES DAILY omeprazole 20 mg Capsule,Delayed Release(Dr/Ec) 20 mg PO DAILY melatonin 10 mg Tablet 10 mg PO QHS PRN (Reason: Insomnia) lidocaine 5 % Adhesive Patch,Medicated 2 patch topical DAILY Qty: 30 0RF Protocol: *Topical Application Instructions APPLICATION INSTRUCTIONS: to affected back area oxycodone 5 mg Tablet 5 mg PO Q4H PRN PRN (Reason: Pain Score 4-5) 3 Days Qty: 12 0RF prednisone 20 mg tablet 40 mg PO DAILY Qty: 10 0RF hydrocodone-acetaminophen [hydrocodone-acetaminophen] 5-325 mg tablet 1 tab PO Q4H PRN PRN (Reason: Pain) 2 Days Qty: 15 0RF Primary Care Provider: Meche Wells NP Referrals: Meche Wells NP, DIRECTOR OF IN SERVICE EDUCATION-C [Primary Care Provider] - Disposition Disposition: Home, Self Care
[2022-07-15 16:48] LABS: Absolute Lymphocyte Count 2.14 X10^3/uL (0.83-4.51); Absolute Neutrophil Count 2.9 X10^3/uL (2.0-7.7); Basophil# 0.08 X10^3/uL; Basophil% 1.4 % (0-1); Eosinophil# 0.16 X10^3/uL; Eosinophils% 2.7 % (0-5); Hematocrit 39.1 % (37-47); Hemoglobin 12.8 g/dL (12.0-15.0); Lymphocyte # 2.14 X10^3/ul (0.83-4.51); Lymphocyte % 36.8 % (19-41); Mean Corp Hgb Conc 32.7 g/dL (32-36); Mean Corpuscular Volume 103.7 fL (81-99); Mean Platelet Vol. 11.9 fl (6.2-12.0); Monocyte# 0.51 X10^3/uL; Monocyte% 8.8 % (0-10); NRBC Flagged by Analyzer 0 % (0-5); Neutrophil % 49.8 % (47-70); Platelet Count 243 K/mm3 (150-450); RBC Distribution Width CV 13.2 % (11.6-14.6); RBC Distribution Width SD 51.3 fl (35.1-43.9); Red Blood Count 3.77 M/mm3 (4.2-5.4); White Blood Count 5.8 K/mm3 (4.4-11.0)
[2022-07-15] MEDS: Ketorolac 15 MG/ML Vial IV (16:48)
[2022-07-15] MEDS: 0.9% Normal Saline 1,000 ML 1000 ML IV (16:48)
[2022-07-15 17:01] LABS: Bacteria 0 SEEN /hpf (None Seen); Mucous, Urine 0 SEEN /hpf (<or=2+); Red Blood Cells-Urine 0 SEEN /hpf (0-5); Squamous Epithelial Cells - UA 0 SEEN /hpf (5-10); White Blood Cells 0 SEEN /hpf (0-5)
[2022-07-15 17:06] LABS: Color, Urine Yellow (Yellow); Glucose, Dipstick Normal (Normal); Ketone-Dipstick 5 mg/dl (Negative); Leukocyte Esterase-Dipstick Negative /ul (Negative); Nitrite-Dipstick Negative (Negative); Occult Blood-Urine Negative /ul (Negative); Protein-Dipstick 15 mg/dl (Negative); Specific Gravity, Urine 1.015 (1.002-1.030); Urine Bilirubin Dipstick Negative (Negative); Urine Clarity Clear (Clear); Urine Urobilinogen Normal (Normal)
[2022-07-15 17:07] LABS: AST(SGOT) 37 U/L (15-37); Alanine Aminotransfer ALT/SGPT 54 U/L (13-56); Albumin, Serum 3.3 g/dL (3.2-5.0); Alkaline Phosphatase 48 U/L (45-117); Anion Gap 6 (5-15); BUN 14 mg/dL (7-18); BUN/Creat Ratio 14.1 RATIO (10-20); Calcium,Total 9.1 mg/dL (8.5-10.1); Chloride 109 mmol/L (98-107); Creatinine, Serum 0.99 mg/dL (0.55-1.02); EST Glomerular Filtration Rate 62 mL/min (>60); Est Glom Filt Rate - Afr Amer 75 mL/min (>60); Globulin 3.3 g/dL (2.2-4.2); Glucose 103 mg/dL (74-106); Potassium 3.8 mmol/L (3.5-5.1); Protein, Total 6.6 g/dL (6.4-8.2); Sodium Level 140 mmol/L (136-145)
[2022-07-15 17:58] VITALS: BP 111/78; PULSE 71; RESP 16; O2SAT 98
[2022-07-15 19:11] VITALS: BP 134/69; PULSE 72; RESP 15; O2SAT 98
== END 2022-07-15 19:12 | disposition home or self-care (01) ==
PROVIDERS: Emergency Provider Student in an Organized Health Care Education/Training Program; PCP Nurse Practitioner Family; Visit Provider Student in an Organized Health Care Education/Training Program
DX: R10.31 Right lower quadrant pain (principal); Z87.891 Personal history of nicotine dependence; I10 Essential (primary) hypertension; Z90.49 Acquired absence of other specified parts of digestive tract; F41.8 Other specified anxiety disorders; Z79.899 Other long term (current) drug therapy; K21.9 Gastro-esophageal reflux disease without esophagitis
CPT/HCPCS: 80053; 81001; 85025; 96361; 96374; 99282; J7030; A4216

== ENCOUNTER → 2024-06-27 | Outpatient (CLI) | payer MEDICARE, MEDICAID, SELFPAY ==
--- NOTE | 2024-06-27 06:49 | MRI_ITS ---
EXAM: MRI LOWER EXTREMITY. CLINICAL HISTORY: CHRONIC PAIN. RECENT FALL. COMPARISON: Radiographs on 06/06/2024. TECHNIQUE: Axial, coronal and sagittal T1 and T2-weighted images. Fat suppressed images were also obtained. FINDINGS: Mildly heterogeneous signal intensity of the visualized bone marrow, probably osteopenia. Mild degenerative joint disease of the hips and sacroiliac joints. Bilateral changes of trochanteric bursitis/gluteal tendinosis, more prominent on the left side. No fracture or dislocation is seen. There is no hip effusion. There is no demonstrated labral tear. Normal femoral neck and intratrochanteric region. Normal iliopsoas tendons and distal insertions. There is no iliopsoas or iliopectineal bursitis. Normal superior and inferior pubic rami. Normal pubic symphysis. Normal ischial tuberosity. Normal origin of the hamstring tendons. Normal visualized soft tissue structures of the pelvis. MRI/Lower Ext Joint Only (Routine) IMPRESSION: 1. Mildly heterogeneous signal intensity of the visualized bone marrow, probabl y osteopenia. 2. Mild degenerative joint disease of the hips and sacroiliac joints. 3. Bilateral changes of trochanteric bursitis/gluteal tendinosis, more prominen t on the left side. 4. No fracture or dislocation is seen. Reading Location: [place] [id number]
== END | disposition home or self-care (01) ==
PROVIDERS: PCP Nurse Practitioner Family; Referring Provider Orthopaedic Surgery; Visit Provider Orthopaedic Surgery
DX: S70.02XA Contusion of left hip, initial encounter (principal)
CPT/HCPCS: 73721

== ENCOUNTER 2024-07-02 10:50 | Emergency (ER) | payer MEDICARE, MEDICAID, SELFPAY ==
[2024-07-02 10:50] VITALS: BP 107/94; PULSE 85; RESP 14; TEMP 36.6; O2SAT 99; BMI 28.9
--- NOTE | 2024-07-02 11:11 | RAD_ITS ---
EXAM: XR Right Foot Complete, 3 or More Views CLINICAL INDICATION: INJURY TECHNIQUE: Frontal, lateral and oblique views of the right foot. COMPARISON: No relevant prior studies available. FINDINGS: BONES/JOINTS: Unremarkable. No dislocation. No acute fracture. SOFT TISSUES: Soft tissue swelling. RAD/Foot min 3 Views IMPRESSION: No acute fracture. Reading Location: [id number]
--- NOTE | 2024-07-02 11:37 | EX.ED.DYSGE1 ---
HPI <LON Churchill - Last Filed: 07/02/24 11:42> History of Present Illness Chief Complaint: Lower Extremity Injury Narrative Narrative: Patient 53-year-old female with history of chronic pain, anxiety for depression, GERD presents to the [facility] after right foot injury. Patient states that she was walking, striking the right side of her foot on the fireplace. Pay states she has some bruising some of some pain and she is here for evaluation [facility] <LON Churchill - Last Filed: 07/02/24 11:42> [facility] Medical History DDD (degenerative disc disease) Hypothyroidism Osteoporosis Pancreatitis GERD (gastroesophageal reflux disease) Migraines HTN (hypertension) History of biliary stent insertion History of pancreatitis MOCTEZUMA (nonalcoholic steatohepatitis) Anxiety and depression Home Medications ?Medication ?Instructions ?Recorded ?Last Taken ?Type bupropion HCl 300 mg 24 hr tablet, 300 mg PO DAILY 11/27/21 Unknown History extended release furosemide 20 mg tablet 20 mg PO DAILY 11/27/21 Unknown History lorazepam 1 mg tablet 1 mg PO TID 11/27/21 Unknown History montelukast 10 mg tablet 10 mg PO DAILY 11/27/21 Unknown History omeprazole 20 mg capsule,delayed 20 mg PO DAILY indigestion 11/27/21 Unknown History release oxycodone 5 mg tablet 5 mg PO Q4H PRN PRN Pain Score 4-5 11/27/21 Unknown Rx 3 days #12 tabs potassium chloride 10 mEq 20 meq PO DAILY 11/27/21 Unknown History tablet,extended release pregabalin 150 mg capsule 150 mg PO TID 11/27/21 Unknown History spironolactone 100 mg tablet 100 mg PO DAILY 11/27/21 Unknown History tizanidine 4 mg tablet 4 mg PO PRN PRN Back Pain 11/27/21 Unknown History levothyroxine 50 mcg tablet 50 mcg PO QAM 06/06/24 Unknown History Allergy/AdvReac Type Severity Reaction Status Date / Time diphenhydramine (From Allergy Anaphylaxis Verified 07/02/24 10:50 Benadryl) tramadol (From Ultram) Allergy Hives Verified 07/02/24 10:50 turkey Allergy Food Verified 07/02/24 10:50 Allergy Family History Mother Hypertension Father Hypertension Aunt Parkinson disease Surgical History History of surgery on lower extremity S/P biliary surgery History of bilateral tubal ligation S/P cholecystectomy Social History household members: significant other Smoking Status: Former smoker alcohol intake: never substance use type: does not use ROS <LON Churchill - Last Filed: 07/02/24 11:42> ROS ED ROS Narrative Constitutional: Negative for fever, chills, weight loss, weakness Eyes: Negative for vision loss, vision change, double vision ENT: Negative for any sore throat, ear pain, congestion Cardiovascular: Negative for any chest pain, tightness, palpitations Respiratory: Negative for any cough, sputum production, hemoptysis, dyspnea, dyspnea on exertion, orthopnea Gastrointestinal: Negative for any abdominal pain, nausea, vomiting, diarrhea, constipation, blood in stool, blood in vomit : Negative for any urinary frequency, dysuria, retention, blood in urine Muscle skeletal: Negative for any neck pain, back pain. Positive for right foot pain Neurological: Negative for any headache, syncope, dizziness Skin: Negative for any rashes, itching, abrasions, lacerations Psychiatric: Negative for any depression, anxiety, stress, suicidal ideation, homicidal ideation Hematologic: Negative for any excessive bruising, easy bleeding EXAM <LON Churchill - Last Filed: 07/02/24 11:42> Physical Exam Narrative Exam Narrative: Vital signs reviewed. Extremities: Patient does have pain on palpation to the right lateral foot, there is some ecchymosis edema. There is no gross deformity. Neuro: Cranial nerves II through XII intact, no focal neurological deficits. Skin: Clean dry and intact with no rash, purpura, petechiae, vesicles or pustules. Backs/flank: No CVA tenderness, no midline spinal tenderness, no deformity. Psych: Normal mood and affect. No SI, HI or acute psychosis. Const Vital Signs: 07/02/24 10:50 07/02/24 11:43 Temperature 98 F 98 F Temperature Source Temporal Pulse Rate 85 83 Respiratory Rate 14 16 Blood Pressure 107/94 H 120/78 Blood Pressure Mean 98 92 Pulse Ox 99 99 Oxygen Delivery Method Room Air Positive well nourished and well developed General Appearance ED: well developed <Dr. Pam Gupta DO - Last Filed: 07/02/24 13:35> Physical Exam Const Vital Signs: 07/02/24 10:50 07/02/24 11:43 Temperature 98 F 98 F Temperature Source Temporal Pulse Rate 85 83 Respiratory Rate 14 16 Blood Pressure 107/94 H 120/78 Blood Pressure Mean 98 92 Pulse Ox 99 99 Oxygen Delivery Method Room Air MDM <LON Churchill - Last Filed: 07/02/24 11:42> [facility] Radiography Diagnostic Testing: Clinical Impression(s) from Imaging Studies Foot X-Ray 07/02/24 11:11 IMPRESSION: No acute fracture. Reading Location: [facility] Treatment and Re-Evaluation :: Differential diagnosis includes however is not limited to: Fifth metatarsal fracture, Bolaños fracture, pseudo Bolaños fracture, contusion Patient appears generally well, vital signs are stable, patient is nontoxic-appearing. Presenting to the [facility] after injuring her right foot. Patient's x-rays of the right foot showed no acute fracture. Patient already has a walking boot, she will use her pain medicines at home. She instructed ice and elevate. She can follow-up with her PCP however I will give her podiatry. All questions answered, stable for discharge <Dr. Pam Gupta, - Last Filed: 07/02/24 13:35> [facility] Radiography Diagnostic Testing: Clinical Impression(s) from Imaging Studies Foot X-Ray 07/02/24 11:11 IMPRESSION: No acute fracture. Reading Location: [facility] Treatment and Re-Evaluation :: Differential diagnosis includes however is not limited to: Fifth metatarsal fracture, Bolaños fracture, pseudo Bolaños fracture, contusion Patient appears generally well, vital signs are stable, patient is nontoxic-appearing. Presenting to the [facility] after injuring her right foot. Patient's x-rays of the right foot showed no acute fracture. Patient already has a walking boot, she will use her pain medicines at home. She instructed ice and elevate. She can follow-up with her PCP however I will give her podiatry. All questions answered, stable for discharge I have personally performed a face to face assessment of the patient and have reviewed the TIERRA Note. I performed a substantive portion of the visit including all aspects of the following. My barajas findings include: History is patient is a 53-year-old female presenting with injury to her right foot. She struck it on her fireplace yesterday evening. She has a walking boot that she had already had which she is put on. She came in for further evaluation to ensure nothing is broken given the degree of swelling. She is also having shooting pain going down the lateral aspect of her foot. On exam patient has equal DP pulses. Movements preserved of the ankle and foot. Normal Russell test. Is a localized contusion to the lateral aspect of the proximal foot. No bony tenderness over the lateral malleolus. X-ray viewed by myself as well as radiology does not show any acute fracture. Patient is given referral for podiatry also, she can follow-up with her primary care doctor. Treated as a contusion. Suspect the swelling is causing a component of neuropathy/the shooting pain. Instructed to alternate ibuprofen and Tylenol as needed for pain. Given return precautions. Discharged home in stable condition. Able to ambulate out of the emergency room. Other additions or changes: [None] Discharge Plan Triage Chief Complaint: Lower Extremity Injury ED Midlevel Provider: Te Cheng ED Provider: Pam Gupta Dx/Rx/DC Orders Clinical Impression: Contusion of foot Instructions: ED Foot Contusion Prescriptions: No Action levothyroxine 50 mcg tablet 50 mcg PO QAM tizanidine 4 mg tablet 4 mg PO PRN PRN (Reason: Back Pain) Patient Comments: TAKE 1 TABLET BY MOUTH THREE TIMES DAILY spironolactone 100 mg tablet 100 mg PO DAILY Patient Comments: TAKE 2 TABLETS BY MOUTH DAILY potassium chloride 10 mEq tablet extended release 20 meq PO DAILY Patient Comments: 1 tablet by mouth twice a day montelukast 10 mg tablet 10 mg PO DAILY Patient Comments: Take 1 tablet by mouth daily furosemide 20 mg tablet 20 mg PO DAILY Patient Comments: TAKE 1 TABLET BY MOUTH TWICE DAILY lorazepam 1 mg tablet 1 mg PO TID Patient Comments: TAKE 1 TABLET BY MOUTH THREE TIMES DAILY bupropion HCl 300 mg tablet extended release 24 hr 300 mg PO DAILY Patient Comments: by mouth once a day as directed pregabalin 150 mg capsule 150 mg PO TID Patient Comments: TAKE 1 CAPSULE BY MOUTH THREE TIMES DAILY omeprazole 20 mg Capsule,Delayed Release(Dr/Ec) 20 mg PO DAILY oxycodone 5 mg Tablet 5 mg PO Q4H PRN PRN (Reason: Pain Score 4-5) 3 Days Qty: 12 0RF Primary Care Provider: Meche Wells NP Referrals: Karson Davison DPM [Med Staff - Active Staff] - Meche Wells NP, REHABILITATION TECH-C [Primary Care Provider] - Activity Restrictions/Additional Instructions: Please continue to follow-up. Print Language: Polish Disposition Disposition: Home, Self Care Discharge Date/Time: 07/02/24 11:47
[2024-07-02 11:43] VITALS: BP 120/78; PULSE 83; RESP 16; TEMP 36.6; O2SAT 99
== END 2024-07-02 11:47 | disposition home or self-care (01) ==
PROVIDERS: Emergency Provider Emergency Medicine; PCP Nurse Practitioner Family; Visit Provider Emergency Medicine
DX: S90.31XA Contusion of right foot, initial encounter (principal); Z87.891 Personal history of nicotine dependence; I10 Essential (primary) hypertension; W22.09XA Striking against other stationary object, initial encounter; Y93.01 Activity, walking, marching and hiking; F41.8 Other specified anxiety disorders; Z79.899 Other long term (current) drug therapy; K21.9 Gastro-esophageal reflux disease without esophagitis; E03.9 Hypothyroidism, unspecified; Z79.890 Hormone replacement therapy; Z98.51 Tubal ligation status; Z90.49 Acquired absence of other specified parts of digestive tract
CPT/HCPCS: 73630; 99282